=== PATIENT | male | born 1960 | race Caucasian/White ===

== ENCOUNTER → 2018-08-09 | Outpatient (CLI) | payer BC, OTHER ==
[~2018-08-09] MED LIST: ASPIRIN325 PO; BENAZEPRIL HCL40 MG PO; BREO ELLIPTA 11 EACH IH; CARDIZEM CD240 MG PO; PRADAXA150 MG PO; VITAMIN D1000 UNI1 PO
== END ==
LOC: CAT 14:43
DX: J43.9 Emphysema, unspecified (principal); J84.10 Pulmonary fibrosis, unspecified; R91.1 Solitary pulmonary nodule

== ENCOUNTER → 2020-03-28 | Outpatient (CLI) | payer BC, OTHER | LOC: RAD 09:37 | DX: J44.9 Chronic obstructive pulmonary disease, unspecified (principal); J98.4 Other disorders of lung ==